=== PATIENT | female | born 1965 | race Caucasian/White ===

== ENCOUNTER 2020-05-15 15:25 | Observation (INO) | payer MEDICAID, SELFPAY ==
[2020-05-15] VITALS (11 sets, daily range): BP systolic 130–159; BP diastolic 62–100; PULSE 62–85; RESP 16–29; TEMP 36.1–36.6; O2SAT 97–100; BMI 33.1
--- NOTE | ~2020-05-15 | CT_ITS ---
EXAMINATION: CTA brain carotid EXAM DATE: 05/15/2020 16:33 INDICATION: Headaches and dizziness. TECHNIQUE: Noncontrast head CT. Spiral CTA of the carotid arteries was performed with intravenous i njection 100 cc of Omnipaque 350. Axial, coronal, sagittal reformatted images reviewed. Additional r eformatted images created on dedicated 3-D workstation. NASCET comparable standard used to assess th e degree of arterial stenosis. Spiral CT angiogram cerebral arteries performed with the same intrave nous injection of contrast. Source images of the brain CTA transferred to dedicated workstation for 3 -D rotational image creation. Coronal, sagittal maximum intensity pixel images also reviewed. The d ose-length product (DLP) for this examination was 2036.69 mGy-cm. The exposure was tailored accordi ng to patient size, and iterative reconstruction (ASIR) was used as additional dose reduction techniq ue. There is no prior study for comparison. FINDINGS: There is mild bilateral carotid bulb arterial sclerosis without stenosis. The right vertebr al artery is dominant. There is severe narrowing of the distal aspect of the left vertebral artery ju st before it enters the basilar artery. There is mild to moderate left carotid siphon and mild right carotid siphon arterial sclerosis with no more than mild stenosis. There is no carotid or vertebral basilar arterial dissection or fibromuscular dysplasia. There are no cerebral artery aneurysms. There is symmetric cerebral artery arborization. The sagittal, transverse and sigmoid sinuses enhance norm ally, no venous sinus thrombosis. Internal cerebral veins also enhance normally. There is no acute intraparenchymal hemorrhage. No evidence of intraparenchymal brain mass lesion. N o evidence of acute infarction. Please note that initial head CT has limited sensitivity for small or acute infarctions. There is mild to moderate periventricular and subcortical hypodensity, nonspecifi c but probably related to small vessel ischemic disease. There is mild prominence of the sulci and ventricles related to cerebral atrophy. There is intracranial carotid arteriosclerosis. There is no mass effect or midline shift. There is no obstructive hydrocephalus suspected. There are no extra -axial collections. There are no calvarial acute fractures. There are no areas of abnormal enhancem ent on the postcontrast images. Lung apices are clear. There are there is left thyroid lobectomy. There are large cervical bridging e ndplate osteophytes and there is severe cervical facet arthropathy. IMPRESSION: 1. No acute intracranial findings. 2. 0% carotid bulb stenosis bilaterally. 3. Chronic, surgical changes. Reviewed, dictated and finalized at location [facility]. [facility]
--- NOTE | 2020-05-15 15:29 | ECG_ITS ---
Measurements Intervals [place] Rate: 69 P: 76 NC: 134 QRS: 74 QRSD: 75 T: 70 QT: 400 QTc: 429 Interpretive Statements SINUS RHYTHM NORMAL ECG Electronically Signed On 05-15-2020 17:12:41 STUDIO TECHNICIAN VIDEO OPERATOR by Tim Jackson D.O.
[2020-05-15 15:47] LABS: Basophils Percent Auto 0.4 % (0.2-1.2); Eosinophils Percent Auto 0.6 % (0-4.4); Hematocrit 43.7 % (37.0-47.0); Hemoglobin 15.1 g/dL (12.0-15.0); Immature Granulocyte Absolute 0.02 K/mm3 (0.00-0.031); Immature Granulocyte Percent A 0.3 % (0-0.5); Lymphocytes Absolute Auto 1.96 K/mm3 (0.9-3.2); Lymphocytes Percent Auto 28.5 % (18.3-44.2); Mean Corpuscular HGB Conc 34.6 g/dl (32-36); Mean Corpuscular Hemoglobin 37.3 pg (26-34); Mean Corpuscular Volume 107.9 fl (80-100); Mean Platelet Volume 9.7 fl (7.4-10.4); Monocytes Absolute Auto 0.5 K/mm3 (0.1-0.6); Monocytes Percent Auto 7.7 % (2.6-8.5); Neutrophils Absolute Auto 4.3 K/mm3 (1.3-6.7); Neutrophils Percent Auto 62.5 % (45.5-73.1); Platelet Count Result 228 k/mm3 (150-375); Red Blood Count 4.05 M/mm3 (4.2-5.4); Red Cell Distribution Width 12.9 % (11.5-14.5); White Blood Count 6.9 K/mm3 (4.5-10.0)
--- NOTE | 2020-05-15 15:50 | ED.DIZZY ---
HPI - Dizziness General Chief Complaint: Dizziness Stated Complaint: Dizziness,nausea,vargas Time Seen by Provider: 05/15/20 15:37 Source: patient Mode of arrival: ambulatory Limitations: no limitations History of Present Illness HPI Narrative: Patient is a 54 year old female with history of hypertension who presents for evaluation of dizziness. She reports a problem with dizziness intermittently for months. Since Saturday she has been having left frontal headache that is intermittent . She reports dizziness and it is worse with standing. She started taking metoprolol and lisinopril on saturday as well. She has been unable to take a shower because she feels dizziness with standing. She reports she leans to the right. SHe also reports she is having a hard time focusing her vision. She denies focal weakness, but she has numbness and tingling to both hand and feet. She denies chest pain, shortness of breath. She does reports nausea and vomiting. Related Data Home Medications Medication Instructions Recorded Confirmed lisinopril 10 mg PO DAILY 05/15/20 05/15/20 metoprolol tartrate 50 mg PO Q12H 05/15/20 05/15/20 Allergies Allergy/AdvReac Type Severity Reaction Status Date / Time No Known Allergies Allergy Verified 05/15/20 18:58 Review of Systems Review of Systems: All systems reviewed & are unremarkable except as noted in HPI and below ENT: Reports dizziness, Denies nasal congestion and Denies sore throat Comments: chronic tinnitis Cardiovascular: Cardiovascular: Denies chest pain Respiratory: Respiratory: Denies cough and Denies dyspnea Gastrointestinal: Gastrointestinal: Denies abdominal pain, Reports nausea and Reports vomiting Neurologic: Reports dizziness, Reports headache(s) and Denies focal weakness [facility] Past Medical History Medical History (Updated 05/15/20 @ 19:19 by Rosalinda Wang MD) Hypertension Social History Social History (Updated 05/03/20 @ 15:25 by Kassidy Pittman CMA) Smoking status: Current every day smoker Tobacco type: cigars Second hand tobacco smoke exposure: No Additional smoking assessment comments: 2 flavored cigars a day Alcohol intake: former Substance use: never Substance use type: does not use Other substance usage details: former drinker 5-6 per week Gender identity (if verbalized by the patient): Female Sexual Orientation (if Verbalized by the Patient): Straight or Heterosexual Spiritual care concerns: No Exam Const: General: no acute distress and alert Orientation/consciousness: patient oriented x3 HENMT: Head: normocephalic and atraumatic Face and sinus: face symmetric Eyes: Pupils: Equal, round and reactive pupils present EOM: EOMs intact bilaterally Other: no nystagmus Resp: Effort & Inspection: normal respiratory effort and no retractions Auscultation: clear to auscultation bilaterally Cardio: Rate: regular rate Rhythm: regular rhythm Heart sounds: no murmurs GI: GI Palp: Yes Soft to palpation, No Tenderness to palpation present (GI) and No Guarding due to palpation present (GI) Auscultation: normal bowel sounds Skin: General skin exam: normal color Rashes: no rashes Neuro: General: patient oriented x3, moves all extremities, no meningeal signs, no focal motor deficits and CN's II-XI intact bilaterally Cranial nerves: Yes CN's II-XII intact bilaterally and Yes Nystagmus not present Speech: normal speech Motor exam (neuro): 5/5 motor strength present throughout and Pronator motor function not present Sensory Exam: normal sensation Coordination: [id number]-[id number] test normal Other: unable to assess gait Psych: Mental Status: mental status grossly normal Affect: normal affect Course Reevaluation(s) Reevaluation #1: Patient reports she feels better. She still has dizziness but her headache has resolved. I have discussed CT report showing multifocal stenosis.. Nothing acute. She will be admitted for MRI. Date:
[2020-05-15] MEDS: METOCLOPRAMIDE HCL INJ 10 MG/2 ML VIAL IV PUSH (15:57)
[2020-05-15] MEDS: SODIUM CHLORIDE 0.9% IV 500 ML 999 ML IV CONT (15:57)
[2020-05-15] MEDS: diphenhydrAMINE HCl INJ 50 MG/ML VIAL 25 MG IV PUSH (15:57)
[2020-05-15 15:59] LABS: Anion Gap 1 mmol/L (8-16); Blood Urea Nitrogen 13 mg/dL (7-17); Carbon Dioxide 30 mmol/L (22-30); Chloride 99 mmol/L (98-107); Estimated CRCL calculation 86 ml/min; Estimated Glomerular Filt Rate > 60; Glucose 112 mg/dL (65-105); Potassium 3.5 mmol/L (3.4-5.0); Sodium 130 mmol/L (137-145)
[2020-05-15 17:15] LABS: Folic Acid 6.3 ng/mL (2.76->20)
[2020-05-15] MEDS: MECLIZINE HCL 25 MG TABLET PO (17:30)
[2020-05-15] MEDS: ASPIRIN 81 MG CHEWABLE TABLET 324 MG PO (17:30)
[2020-05-15] MEDS: CLOPIDOGREL BISULFATE 75 MG TABLET PO (17:30)
--- NOTE | 2020-05-15 18:45 | ADMGEN ---
This patient, Carmina Mcdonough, was admitted to Medical Room 252-01. Patient/family oriented to hospital policies and general routines including ID bracelet, bed and alarms, visiting hours, pain management, procedures, bathroom and other care routines, personal items, smoking policy, room service/diet, and visiting hours. Information on how to activate the Rapid Response Team has been discussed. Patient/Family are encouraged to report perceived risks to care and to ask questions if they do not understand what they are told or what they should do.
--- NOTE | 2020-05-15 19:49 | PM.IMHP ---
H&P: HPI History of Present Illness Date/Time: 05/15/20 19:49 Chief Complaint: dizziness Narrative: Carmina Mcdonough is a 54 year old female the patient stated that she has a history of hypertension however during COVID outbreak patient was not able to refill her metoprolol and lisinopril. The patient stated that she has felt dizzy before and it has been intermittently for months. The patient stated this past Saturday she was able to see a provider and started her blood pressure medication again. She has had no prior history of having any CVA or TIA. So she started taking her blood pressure medicine this past Saturday. The patient has been unable to stand up in the shower because she feels dizzy. The patient reports that when she walks she feels like she is leaning to the right. She also had some tunnel vision as well. No focal weakness. She is able to to follow command and hold a conversation. She has also had a hard time focusing Due to her tunnel vision. The patient had no fever chills no nausea vomiting or diarrhea. Patient stated that she has not been on any medication for the last couple months. CT of the brain was read as age-indeterminate occlusion of the M1 branch of the left MCA. There is collateral filling of the distal left MCV branches. Intracranial arthrosclerosis which multifocal stenosis. X patient was given IV Tylenol, Reglan, Benadryl IV fluids, Antivert, aspirin and Plavix. Neurology has been consulted. Patient is being admitted for observation on the date of service of 05/15/2020. Review of Systems Review of Systems: All systems reviewed & are unremarkable except as noted in HPI and below Constitutional: Constitutional: Reports as per HPI and Reports no additional constitutional complaints Eyes: Eyes: Reports as per HPI and Reports no additional eye complaints ENT: Reports system reviewed and no additional complaints, except as documented and Reports Normal hearing present Cardiovascular: Cardiovascular: Reports no additional cardiovascular complaints Respiratory: Respiratory: Reports no additional respiratory complaints and Reports no additional respiratory complaints Gastrointestinal: Gastrointestinal: Reports as per HPI and Reports no additional gastrointestinal complaints Musculoskeletal: Musculoskeletal: Reports no additional musculoskeletal complaints Integumentary/Breasts: Skin/Breast: Reports system reviewed and no additional complaints, except as docu and Reports as per HPI Neurologic: Reports system reviewed and no additional complaints, except as documented, Reports as per HPI and Reports Normal hearing present Psychiatric: Psychiatric: Reports no additional psychiatric complaints and Reports as per HPI Endocrine: Endocrine: Reports no additional endocrine complaints Hematologic/Lymphatic: Hematologic/Lymphatic: Reports no additional hematologic/lymphatic complaints Allergic/Immunologic: Allergic/Immunologic: Reports no additional allergic/immunologic complaints [facility] Past Medical History Medical History (Updated 05/15/20 @ 20:05 by Tammy Tracey NP) HTN (hypertension) with goal to be determined Hypertension Surgical History Surgical History (Updated 05/15/20 @ 20:05 by Tammy Tracey NP) H/O nasal polypectomy History of open reduction and internal fixation (ORIF) procedure right ankle History of removal of cyst on her chest History of vocal cord polypectomy Hx of nasal septoplasty Family History Family History (Updated 05/15/20 @ 20:24 by Tammy Tracey NP) Father Acute myocardial infarction Sibling Brain bleed Mother Breast cancer Social History Social History (Updated 05/15/20 @ 20:09 by Tammy Tracey NP) Social History: the patient has her mother that lives with her and she has no children. Her mother is her durable power claim attorney healthcare. The patient stated that she will be a full code Because that is what her mother would want her to be.
[2020-05-15] MEDS: METOPROLOL TARTRATE 50 MG TAB PO (22:18)
[2020-05-16] VITALS (7 sets, daily range): BP systolic 105–127; BP diastolic 57–83; PULSE 70–82; RESP 16–20; TEMP 36.4–36.7; O2SAT 97
[2020-05-16 05:38] LABS: Basophils Percent Auto 0.5 % (0.2-1.2); Eosinophils Absolute Auto 0.1 K/mm3 (0-0.3); Eosinophils Percent Auto 0.9 % (0-4.4); Hematocrit 42.5 % (37.0-47.0); Hemoglobin 14.6 g/dL (12.0-15.0); Immature Granulocyte Absolute 0.02 K/mm3 (0.00-0.031); Immature Granulocyte Percent A 0.3 % (0-0.5); Lymphocytes Absolute Auto 2.48 K/mm3 (0.9-3.2); Mean Corpuscular HGB Conc 34.4 g/dl (32-36); Mean Corpuscular Hemoglobin 37.3 pg (26-34); Mean Corpuscular Volume 108.7 fl (80-100); Mean Platelet Volume 10.1 fl (7.4-10.4); Monocytes Absolute Auto 0.5 K/mm3 (0.1-0.6); Monocytes Percent Auto 7.5 % (2.6-8.5); Neutrophils Absolute Auto 3.4 K/mm3 (1.3-6.7); Neutrophils Percent Auto 52.8 % (45.5-73.1); Platelet Count Result 230 k/mm3 (150-375); Red Blood Count 3.91 M/mm3 (4.2-5.4); Red Cell Distribution Width 12.9 % (11.5-14.5); White Blood Count 6.5 K/mm3 (4.5-10.0)
[2020-05-16 05:52] LABS: Alanine Aminotransferase 21 U/L (4-35); Albumin Level 3.6 g/dL (3.5-5.1); Alkaline Phosphatase 64 U/L (38-126); Anion Gap 6 mmol/L (8-16); Aspartate Amino Transferase 35 U/L (14-36); Bilirubin,Total 0.7 mg/dL (0.2-1.3); Blood Urea Nitrogen 12 mg/dL (7-17); CRP < 0.5 mg/dL (<1.0); Calcium 8.8 mg/dL (8.4-10.2); Carbon Dioxide 27 mmol/L (22-30); Chloride 104 mmol/L (98-107); Cholesterol 246 mg/dL (0-200); Estimated CRCL calculation 99 ml/min; Estimated Glomerular Filt Rate > 60; Glucose 91 mg/dL (65-105); HDL Direct 37 mg/dL; Lactate Dehydrogenase 598 U/L (313-618); Magnesium 1.9 mg/dL (1.6-2.3); Potassium 3.6 mmol/L (3.4-5.0); Sodium 137 mmol/L (137-145); Triglycerides 267 mg/dL (<150)
[2020-05-16 05:59] LABS: LDL Cholesterol Direct 181 mg/dL
--- NOTE | 2020-05-16 06:00 | ECHO_ITS ---
Patient Info Name: Carmina Mcdonough Age: 54 years : 1965 Gender: Female Ht: 65 in Wt: 200 lbs BSA: 2.07 m2 HR: 72 bpm BP: 130 / 75 mmHg Heart Rhythm: Sinus Rhythm Technical Quality: Good Exam Date: 05/16/2020 10:12 AM Exam Location: [facility] Patient Status: Inpatient Admit Date: 05/15/2020 Staff Ordering Physician: Rosalinda Wang MD Prison Classification Counselor: Félix Ventura RDCS Attending Provider: Merle Demarco PA-C Referring Physician: Felipe REZA; Exam Type: CA echo doppler color flow Study Info Indications 436.0 - CVA Complete two-dimensional, color flow and Doppler transthoracic echocardiogram is performed. Strain analysis performed. History/Risk Factors Dizziness w/ concern for CVA; Hypertension. Summary 1. Complete two-dimensional, color flow and Doppler transthoracic echocardiogram is performed. 2. Left ventricular systolic function is normal, estimated at 65-70%. 3. There is moderately increased left ventricular wall thickness. 4. The left ventricular diastolic function is grade I diastolic dysfunction. 5. Global longitudinal strain is mildly elevated at -17 %. 6. There is mild to moderate aortic valve regurgitation. 7. There is trace tricuspid valve regurgitation. 8. No pulmonary hypertension, estimated pulmonary arterial systolic pressure is 31 mmHg. Recommendations * Consider bubble study and/or transesophageal echocardiogram if clinically indicated. Left Ventricle Left ventricular chamber dimension is normal. Left ventricular systolic function is normal, estimated at 65-70%. There is moderately increased left ventricular wall thickness. The left ventricular diastolic function is grade I diastolic dysfunction. Global longitudinal strain is mildly elevated at -17 %. Right Ventricle Right ventricular chamber dimension is normal. Right ventricular systolic function is normal. Left Atria Left atrial chamber dimension is normal. Right Atria Right atrial chamber dimension is normal. Aortic Valve The aortic valve is not well visualized. There is no aortic valve stenosis. There is mild to moderate aortic valve regurgitation. Pulmonic Valve The pulmonic valve is not well visualized. Mitral Valve The mitral valve has normal leaflets. There is mild mitral valve regurgitation. Tricuspid Valve The tricuspid valve leaflets are not well visualized. There is trace tricuspid valve regurgitation. No pulmonary hypertension, estimated pulmonary arterial systolic pressure is 31 mmHg. Pericardium/Pleural The pericardium appears epicardial fat pad. There is no pericardial effusion. Inferior Vena Cava Normal inferior vena cava with >50% collapse upon inspiration consistent with normal right atrial pressure, 5 mmHg. Aorta The aortic root size at the sinus of Valsalva is normal. Left Ventricular Outflow Tract Name Value Normal LVOT 2D LVOT Diameter 2.2 cm LVOT Doppler LVOT Peak Gradient 7 mmHg LVOT Mean Gradient 3 mmHg LVOT VTI 24 cm LVOT VTI/
[2020-05-16 07:39] LABS: Glucose Point of Care 96 (65-105)
[2020-05-16] MEDS: METOPROLOL TARTRATE 50 MG TAB PO (09:20)
[2020-05-16] MEDS: FLUTICASONE PROPIONATE 0.05% NA SPR 16 GM BTL (*BKC) 1 SPRAY NASAL (09:20)
[2020-05-16] MEDS: lisinopriL 10 MG TABLET PO (09:20)
[2020-05-16] MEDS: CLOPIDOGREL BISULFATE 75 MG TABLET PO (09:21)
[2020-05-16] MEDS: ATORVASTATIN 20 MG TABLET PO (09:21)
[2020-05-16] MEDS: ASPIRIN 81 MG CHEWABLE TABLET PO (09:21)
[2020-05-16 09:44] LABS: Free T4 Free Thyroxine Reflex 0.83 ng/dL (0.78-2.19)
[2020-05-16 11:07] LABS: Total Triiodothyronine (T3) 1.46 NG/ML (0.97-1.69)
--- NOTE | 2020-05-16 12:11 | WPDNEURCNPN ---
Assessment and Plan Assessment and plan (1) HTN (hypertension) with goal to be determined: Code(s): I10 - Essential (primary) hypertension Status: Chronic (2) Dizziness: Code(s): R42 - Dizziness and giddiness Status: Acute Additional Plan underlying significant intracranial arterial disease as per the CT scan further workup is being carried out Consult date: 05/16/20 Time Seen: 11:30 HPI: Carmina Mcdonough is a 54 year old female admitted to the hospital for the complaints of dizziness of intermittent in nature but on Saturday she started taking her blood pressure medication and was unable to stand up in the shower because of the dizziness along with that she has some tunnel vision but no focal weakness and also no history of associated generalized symptomatology initial CT scan of the head in the Emergency Room documented the MC 1 branch of the left MCA occlusion with collateral filling of distal MCA and multifocal stenosis patient received the fluids aspirin and Plavix and was admitted to the hospital for further evaluation. she does have ongoing history of hypertension and vocal cord polypectomy in the past, she is a former drinker never substance abuser and smokes to flavor cigarettes a day. Patient will undergo MRI and echo because of the abnormal CT scan of the head in the meantime she is receiving aspirin 81 mg daily with Plavix 75 mg daily atorvastatin 20 mg daily and lisinopril 10 mg daily PMFSH Past Medical History Medical History HTN (hypertension) with goal to be determined Hypertension Surgical History Surgical History H/O nasal polypectomy History of open reduction and internal fixation (ORIF) procedure right ankle History of removal of cyst on her chest History of vocal cord polypectomy Hx of nasal septoplasty Family History Family History Father Acute myocardial infarction Sibling Brain bleed Mother Breast cancer Social History Social History Social History: the patient has her mother that lives with her and she has no children. Her mother is her durable power managing attorney healthcare. The patient stated that she will be a full code Because that is what her mother would want her to be. 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 She has no children and has never been . She smokes 2 cigars a day. Occasionally uses alcohol no marijuana or illicit drugs. Smoking status: Current every day smoker Tobacco type: cigars Second hand tobacco smoke exposure: No Additional smoking assessment comments: 2 flavored cigars a day Alcohol intake: former Substance use: never Substance use type: does not use Other substance usage details: former drinker 5-6 per week Gender identity (if verbalized by the patient): Female Sexual Orientation (if Verbalized by the Patient): Straight or Heterosexual Spiritual care concerns: No Meds Home Medications and Allergies Home Medications Medication Instructions Recorded Confirmed Type fluticasone propionate 50 1 spray INTRANASAL BID #15.8 ml 05/03/20 05/15/20 Rx mcg/actuation nasal spray,suspension lisinopril 10 mg PO DAILY 05/15/20 05/15/20 History metoprolol tartrate 50 mg PO Q12H 05/15/20 05/15/20 History Allergies Allergy/AdvReac Type Severity Reaction Status Date / Time No Known Allergies Allergy Verified 05/15/20 18:58 Vital Signs Vital Signs - 24 hr 05/15/20 15:29 05/15/20 16:49 05/15/20 17:05 Temperature 36.6 C Pulse Rate 69 85 76 Respiratory Rate 24 H 22 H Blood Pressure 152/100 H 159/78 H 145/64 H Pulse Oximetry 97 100 05/15/20 17:06 05/15/20 17:30 05/15/20 18:38 Temperature Pulse Rate 84 74 78 Respiratory Ra
[2020-05-16 13:15] LABS: Glucose Point of Care 111 (65-105)
--- NOTE | 2020-05-16 17:29 | PM.DS ---
DS: Admitting Diagnosis Admitting Diagnosis Admitting Diagnosis: Dizziness DS: Discharge Diagnosis Discharge Diagnosis (1) Cerebral vascular disease: Code(s): I67.9 - Cerebrovascular disease, unspecified Status: Acute Assessment and Plan: Date of Admission 05/15/20 Date of Discharge/DOS 05/16/20 Ms. Mcdonough is a pleasant 54yo F with history of hypertension who presented to the ED for evaluation of dizziness. She described intermittent dizziness that had been ongoing several weeks however over the last 3 days her dizziness was persistent and she was also having headaches. A head/neck CTA demonstrated no evidence of acute intracranial findings however does note severe narrowing of the distal aspect of the left vertebral artery just before it enters the basilar artery. Patient's symptoms were resolved at time of my encounter and she feels well enough to go home. She is educated regarding her cerebral vascular disease, started on aspirin and statin therapy and encouraged to establish care with neurosurgery as outpatient. MRI unable to be obtained due to the machine being down day of discharge. She is agreeable to discharging with an order for outpatient MRI since her symptoms are resolved. She was educated on stroke risk reduction. She is hemodynamically stable for discharge with instructions to follow up with PCP, obtain MRI brain. She had also been out of her antihypertensives for months and had not been taking them. BPs elevated on arrival but are improved after resuming her previous regimen. BP stable at discharge and she is encouraged to continue taking these medications as prescribed. (2) Chronic hyponatremia: Code(s): E87.1 - Hypo-osmolality and hyponatremia Status: Acute Assessment and Plan: Chronic, stable. (3) Dizziness: Code(s): R42 - Dizziness and giddiness Status: Acute Assessment and Plan: Improved. May be related to TIA, uncontrolled hypertension. See above. (4) HTN (hypertension) with goal to be determined: Code(s): I10 - Essential (primary) hypertension Status: Chronic Assessment and Plan: Resume lisinopril and metoprolol. DS: Summary Hospital Course Hospital Course: See above. Time Spent with Patient Time attestation: Total time spent providing and/or coordinating discharge services: 40 minutes Exam Narrative: Exam Narrative: General: Female resting supine in bed in no acute distress. HEENT: Normocephalic, EOMI, oral mucosa moist. Cardiovascular: Rate and rhythm are regular. No arrhythmia noted on cardiac telemetry monitoring. Respiratory: Lungs clear to auscultation bilaterally. Respirations even and non-labored. Abdomen: Soft, non-tender, non-distended, bowel sounds present. Extremities: Peripheral pulses intact. No edema. Neuro: Alert and oriented x 3. Cranial nerves II-XII intact as tested. PERRY upper and lower extremity strength equal and appropriate. No focal neurological deficits. Speech is clear. DS: Data Data Completed and Pending Labs on day of discharge: Last Vital Signs Temp 98.0 F 05/16/20 14:00 Pulse 78 05/16/20 14:00 Resp 20 05/16/20 14:00 BP 105/76 05/16/20 14:00 Pulse Ox 97 05/16/20 14:00 ITS Impressions Head/Neck CTA 05/16/20 08:07 IMPRESSION: 1. No acute intracranial findings. 2. 0% carotid bulb stenosis bilaterally. 3. Chronic, surgical changes (left thyroid lobectomy). Laboratory Tests 05/16/20 05:01 05/16/20 05:01 Discharge Plan Discharge Attending physician on discharge: Beatrice Arroyo Consulting providers: Juan Herrera ; Merle Demarco ; Tim Jackson ; Huber Lang ; Conrado Ludwig ; Tammy Tracey Discharging Clinician: Merle Demarco Anticipated Discharge Date/Time: 05/16/20 13:54 Patient Disposition: Home, Self-Care Activity: as tolerated Diet: as tolerated Discharge
== END 2020-05-16 14:30 | disposition home or self-care (01) ==
LOC: ANHED 17:38 → ANH2MED 18:30
PROVIDERS: Emergency Medicine; Nurse Practitioner; Physician Assistant; Admitting Provider Family Medicine; Emergency Provider General Practice; PCP Nurse Practitioner; Visit Provider Family Medicine
DX: I67.9 Cerebrovascular disease, unspecified (principal); R42 Dizziness and giddiness; I10 Essential (primary) hypertension; F17.290 Nicotine dependence, other tobacco product, uncomplicated; E87.1 Hypo-osmolality and hyponatremia
CPT/HCPCS: 36415; 70496; 70498; 80048; 80053; 80061; 82607; 82746; 82948; 83615; 83735; 84439; 84443; 84480; 85025; 86140; 93005; 93306; 96361; 96374; 96375; 99285; A9270; G0378; G0379; J0131; J1200; J2765; J7040; Q9967

== ENCOUNTER 2021-03-24 10:23 | Outpatient (CLI) | payer OTHER, SELFPAY ==
--- NOTE | ~2021-03-24 | CT_ITS ---
EXAMINATION: CT sinus wo con DATE: 03/24/2021 10:45 INDICATION: Headache, unspecified TECHNIQUE: Computed tomography (CT) of the paranasal sinuses was performed without intravenous contra st. The dose-length product (DLP) was 296.82 mGy-cm. Iterative reconstruction was used. COMPARISON: 07/14/2009 FINDINGS: There is normal development and pneumatization of the paranasal sinuses. There is mild muco tamara thickening of the ethmoidal air cells and right maxillary sinus. The frontal, sphenoid, and left maxillary sinuses are clear. The right ostiomeatal unit is obstructed. The left is clear. Visualized soft tissues are unremarkable. IMPRESSION: 1. Mild sinus disease as detailed above. Reviewed, dictated and finalized at location [facility]
== END 2021-03-24 10:24 | disposition home or self-care (01) ==
LOC: ANHIMG 10:24
PROVIDERS: PCP Nurse Practitioner; Visit Provider Otolaryngology
DX: R51.9 Headache, unspecified (principal); J32.9 Chronic sinusitis, unspecified; J34.2 Deviated nasal septum; J34.3 Hypertrophy of nasal turbinates; J34.89 Other specified disorders of nose and nasal sinuses; R09.81 Nasal congestion; R09.82 Postnasal drip; R44.8 Other symptoms and signs involving general sensations and perceptions
CPT/HCPCS: 70486

== ENCOUNTER → 2021-04-29 01:49 | Outpatient (CLI) | payer OTHER, SELFPAY ==
[2021-04-29 14:38] LABS: SARS-CoV-2 RNA PCR Negative
== END ==
PROVIDERS: PCP Nurse Practitioner; Visit Provider Otolaryngology
DX: Z01.812 Encounter for preprocedural laboratory examination (principal); Z20.822 Contact with and (suspected) exposure to COVID-19
CPT/HCPCS: C9803; U0003; U0005

== ENCOUNTER 2021-05-02 01:16 | Day surgery (SDC) | payer OTHER, SELFPAY ==
[2021-04-26 14:24] VITALS: BMI 32.4
--- NOTE | 2021-04-26 14:33 | PC.NURSE ---
Report to the Outpatient Waiting Room, entrance under the green pavilion located off [facility], at time 0730 on date 05/02/21. OR Time: 0930. - You will be asked a series of questions to screen for COVID 19 for your protection. - A mask is required within the hospital. - No visitors are allowed at this time. Preoperative COVID Testing Requirements: COVID TEST 04/29 AT 0850 No COVID Test needed if: (proof is required; if not received patient will have Rapid Test prior to entry) - Patient has received COVID Vaccine at least 14 days prior to procedure date or - Patient has positive COVID test result within last 90 days of surgery date. COVID Test needed if above criteria is not met If not COVID vaccinated a COVID test must be conducted within 72 hours of surgery and patient is asked to isolate self from time of testing until procedure. You will go to the [facility] for your COVID testing. The [facility] site is located at the corner of [address] [facility]. You will only be called if COVID results are positive and your surgeon may reschedule your elective surgery date. Patients may have clear liquids (water, carbonated beverages, clear teas, apple juice) until 3 hours prior to surgery with a maximum of 20 ounces. - No food from midnight until time of surgery Take the following medications with a SIP of water the morning of surgery: DOXYCYCLINE, INHALER, NOSE SPRAYS (IF NEEDED) Medications to discontinue per physician: ASPIRIN Date to take last dose: PER DR. KERR Please no make-up, nail [facility] [place], hairspray, perfume, deodorant, or body powder the day of surgery. No jewelry (including any body piercings) or valuables the day of surgery, leave them at home. Please take a shower or bath the night before, or the morning of, surgery with an antibacterial soap. Wear comfortable, loose fitting clothing. - Jewelry must be removed prior to entering the operating room. Rings and piercings that are not removed may be cut off. - The hospital will not accept responsibility for valuables. - Please leave all valuables, including medications, at home the day of surgery. If you are going home after surgery, a licensed truck driver supervisor must drive you home. - NO public transportation without another adult. - We recommend that an adult stay with you for 24 hours following discharge. - We also recommend that you do not drive, make important decision, drink alcoholic beverages, or take any drugs that were not prescribed by your health care provider for at least 24 hours after your discharge time. Follow any additional instructions given to you from your surgeon. Telephone instructions given to MARIA INES LERMA and asked if any additional questions and then verbalized understanding. Patient advised to call surgeon office or pre surgery nurse liaison [phone] if any additional questions.
--- NOTE | 2021-05-01 10:37 | PM.IMHP ---
H&P: HPI History of Present Illness Date/Time: 05/01/21 10:37 Chief Complaint: Chronic sinusitis recurrent sinusitis septal deviation inferior turbinate hypertrophy nasal obstruction nasal congestion Narrative: patient presents for planned surgical procedures. No change in symptoms no change in history Review of Systems Constitutional: Constitutional: Denies fatigue, Denies fever(s) and Denies lethargy Eyes: Eyes: Denies blurry vision and Denies change in vision ENT: Reports as per HPI Cardiovascular: Cardiovascular: Denies chest pain Respiratory: Respiratory: Denies cough Endocrine: Endocrine: Denies fatigue Hematologic/Lymphatic: Hematologic/Lymphatic: Denies easy bleeding, Denies easy bruising and Denies lymphadenopathy Allergic/Immunologic: Allergic/Immunologic: Denies seasonal rhinorrhea [facility] Past Medical History Medical History HTN (hypertension) with goal to be determined Hypertension Surgical History Surgical History H/O nasal polypectomy History of open reduction and internal fixation (ORIF) procedure right ankle History of removal of cyst on her chest History of vocal cord polypectomy Hx of nasal septoplasty Family History Family History Father Acute myocardial infarction Sibling Brain bleed Mother Breast cancer Social History Social History Social History: the patient has her mother that lives with her and she has no children. Her mother is her durable power wellness program administrator healthcare. The patient stated that she will be a full code Because that is what her mother would want her to be. 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 She has no children and has never been . She smokes 2 cigars a day. Occasionally uses alcohol no marijuana or illicit drugs. Smoking status: Former smoker Tobacco type: cigars Second hand tobacco smoke exposure: No Smoking end date: 04/15/21 Additional smoking assessment comments: PREVIOUSLY SMOKED 2 CIGARS A DAY X OVER 30 YEARS Alcohol intake: current Drinks per week: 5 Substance use: never Substance use type: does not use Other substance usage details: former drinker 5-6 per week Gender identity (if verbalized by the patient): Female Sexual Orientation (if Verbalized by the Patient): Straight or Heterosexual Spiritual care concerns: No Meds Home Medications and Allergies Home Medications Medication Instructions Recorded Confirmed Type lisinopril 10 mg PO DAILY 05/15/20 04/26/21 History aspirin [Children's Aspirin] 81 mg PO DAILY@0800 30 Days #30 05/16/20 04/26/21 Rx tablet atorvastatin 20 mg PO DAILY 30 Days #30 tablet 05/16/20 04/26/21 Rx albuterol sulfate 90 mcg/actuation 1 inh INHALATION Q4H 02/02/21 04/26/21 History aerosol inhaler azelastine 137 mcg (0.1 %) nasal 1 spray INTRANASAL Q12H #30 ml 02/13/21 04/26/21 Rx spray aerosol fluticasone propionate 50 2 spray INTRANASAL BID #15.8 ml 02/13/21 04/26/21 Rx mcg/actuation nasal spray,suspension doxycycline hyclate 100 mg capsule 100 mg PO DAILY #10 cap 04/11/21 04/26/21 Rx Allergies Allergy/AdvReac Type Severity Reaction Status Date / Time No Known Allergies Allergy Verified 04/26/21 14:22 Exam Const: General: cooperative, healthy appearing, comfortable, well developed and alert HENMT: Head: normal to inspection, normocephalic and atraumatic Ears: hearing grossly normal bilaterally, external ears normal, TM's normal bilaterally and EAC's normal General nose exam: Normal external nose present, Normal nares present and Other nasal findings present ( septal deviation turbinate hypertrophy) Face and sinus: normal facial exam Mouth: Ye
[2021-05-02] VITALS (9 sets, daily range): BP systolic 141–173; BP diastolic 56–85; PULSE 86–106; RESP 15–26; TEMP 36.2–36.8; O2SAT 89–98
--- NOTE | 2021-05-02 07:14 | WPDHPUPDATE1 ---
History and Physical Update Update Date/Time: 05/02/21 07:14 History and Physical has been reviewed, including an updated exam of the patient. There are NO changes in the patient's condition. Risks, benefits, and alternatives have been discussed and questions answered. Patient agrees to proceed with procedure.
--- NOTE | 2021-05-02 08:42 | WPDANESEPPF ---
Anes - Initial Pre Proc Eval Procedure: Operation Date: 05/02/21 10:00 Proposed Procedures p Image Guided Bilateral Maxillary Antrostomy, Left Anterior Ethmoidectomy, Right Total Ethmoidectomy, Bilateral Inferior Turbinectomy with Outfracture - Christian Gonzalez MD s Septoplasty - Christian Gonzalez MD Date/Time: 05/02/21 08:42 Surgeon: Christian Gonzalez MD Pre Op Diagnosis: Chronic Sinusitis Patient Data Age: 55 Gender: F Height: 1.65 m Weight: 87.4 kg Allergies Allergy/AdvReac Type Severity Reaction Status Date / Time No Known Allergies Allergy Verified 05/02/21 07:58 Home Medications Medication Instructions Recorded Confirmed Type lisinopril 10 mg PO DAILY 05/15/20 05/02/21 History aspirin [Children's Aspirin] 81 mg PO DAILY@0800 30 Days #30 05/16/20 05/02/21 Rx tablet atorvastatin 20 mg PO DAILY 30 Days #30 tablet 05/16/20 05/02/21 Rx albuterol sulfate 90 mcg/actuation 1 inh INHALATION Q4H 02/02/21 05/02/21 History aerosol inhaler azelastine 137 mcg (0.1 %) nasal 1 spray INTRANASAL Q12H #30 ml 02/13/21 05/02/21 Rx spray aerosol fluticasone propionate 50 2 spray INTRANASAL BID #15.8 ml 02/13/21 05/02/21 Rx mcg/actuation nasal spray,suspension doxycycline hyclate 100 mg capsule 100 mg PO DAILY #10 cap 04/11/21 05/02/21 Rx Other studies: Exam Date: 05/16/2020 10:12 AM Exam Location: [facility] Patient Status: Inpatient Admit Date: 05/15/2020 Staff Ordering Physician: Rosalinda Wang MD Sugar Trucker: Félix Ventura RDCS Attending Provider: Merle Demarco PA-C Referring Physician: Felipe REZA; Exam Type: CA echo doppler color flow Study Info Indications 436.0 - CVA Complete two-dimensional, color flow and Doppler transthoracic echocardiogram is performed. Strain analysis performed. History/Risk Factors Dizziness w/ concern for CVA; Hypertension. Summary 1. Complete two-dimensional, color flow and Doppler transthoracic echocardiogram is performed. 2. Left ventricular systolic function is normal, estimated at 65-70%. 3. There is moderately increased left ventricular wall thickness. 4. The left ventricular diastolic function is grade I diastolic dysfunction. 5. Global longitudinal strain is mildly elevated at -17 %. 6. There is mild to moderate aortic valve regurgitation. 7. There is trace tricuspid valve regurgitation. 8. No pulmonary hypertension, estimated pulmonary arterial systolic pressure is 31 mmHg. Patient hx anesthesia problems: none Family hx anesthesia problems: none Results Review: All pre-operative results and documents have been reviewed as part of the pre-operative evaluation. [facility] Past Medical History Medical History (Updated 05/02/21 @ 08:43 by Timbo Key MD) Anxiety Arthritis Cerebral vascular disease Chronic GERD CVA (cerebral vascular accident) Depression HTN (hypertension) with goal to be determined Hypercholesterolemia Hypertension Obesity Surgical History Surgical History H/O nasal polypectomy History of open reduction and internal fixation (ORIF) procedure right ankle History of removal of cyst on her chest History of vocal cord polypectomy Hx of nasal septoplasty Family History Family History Father Acute myocardial infarction Sibling Brain bleed Mother Breast cancer Social History Social History Social History: the patient has her mother that lives with her and she has no children. Her mother is her durable power commonwealth attorney healthcare. The patient stated that she will be a full code Because that is what her mother would want her to be. 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
[2021-05-02] MEDS: LACTATED RINGERS 1,000 ML 30 ML IV CONT ×2 (08:51→11:55)
[2021-05-02] MEDS: ACETAMINOPHEN 500 MG TABLET 1000 MG PO (08:51)
[2021-05-02] MEDS: ceFAZolin 2 GM/D5W 50 ML 2 GM/50 ML BAG IVPB (10:30)
[2021-05-02] MEDS: OXYMETAZOLINE HCL 0.05% NAS 15 ML BTL (*BKC) 1 SPRAY NASAL (10:50)
[2021-05-02] MEDS: LIDO 1%/EPINEPHRINE 1:100,000 50 ML VIAL 10 ML INFILTRATE (11:34)
[2021-05-02] MEDS: MUPIROCIN 2% OINT 22 GM TUBE 1 APPLIC EACH NARE (11:35)
[2021-05-02] MEDS: fentaNYL CITRATE INJ (*CRX) 100 MCG/2 ML VIAL 25 MCG IV PUSH ×4 (12:18→12:29)
--- NOTE | 2021-05-02 12:48 | W.PM.PROC2 ---
Procedure Note - Detailed Date of Procedure 05/02/21 Pre-op Diagnosis Chronic Sinusitis, septal deviation, inferior turbinate hypertrophy, nasal obstruction, nasal congestion Post-op Diagnosis same Procedure Performed Endoscopic assisted septoplasty, inferior turbinate submucosal resection with outfracture, bilateral image guided endoscopic maxillary antrostomies, right-sided endoscopic image guided total ethmoidectomy, left-sided image guided endoscopic anterior ethmoidectomy Surgeon Christian Gonzalez MD Anesthesia general Indications See above Findings Left septal deviation straight and to allow access to the middle meatus purulence scant mucus in the operated sinuses turbinate hypertrophy well reduced. No complications Description of Procedure Patient correctly identified consent verified. Patient brought operating room. Time-out performed. General anesthesia induced endotracheal tube secured. Afrin-soaked pledgets placed low to sit for 5 minutes. Patient prepped and draped for the aforementioned procedure image guidance initiated. Second time-out performed. Afrin-soaked pledgets removed. 0 degree endoscope utilized aforementioned findings noted. 1% lidocaine with 1 100,000 parts epinephrine injected in the bilateral nasal septum and the inferior turbinates total of 8 cc. The [place] incision made posterior to a normal incision given that it appeared previous cartilage had been removed. Left-sided mucoperichondrial flap elevated septum crust over the osteotome small perforation on right tear on left also not concomitant. Deviated septum removed with Dylon Antoine as well as Claudy forceps. [place] incision closed with 1 interrupted 5 0 fast gut suture given its posterior location. Bilateral maxillary antrostomies performed with backbiter double ball tip probe and straight through cut as well as microdebrider significant Brody cells noted largely obstructing the outflow tract of the maxillary sinuses mucoid purulence noted in both opened well connected to the natural os no complications. Right-sided total ethmoidectomy performed with combination of Kerr[place] and microdebrider. Mucoid purulence noted in 1 cell. Left-sided anterior ethmoidectomy performed with a microdebrider and [place] scant mucoid purulence noted as well. Turbinates reduced in the submucoperichondrial plane bilaterally with microdebrider with 2 mm blade and then outfractured. Crisostomo splints trimmed placed bilaterally and sutured anteriorly in the nasal septum with a 3-0 mattress nylon suture. Hemostasis was excellent. The bilateral nasal passages were suctioned the choana. This marked end the procedure. Care the patient turned Anesthesiology. I performed all dictated portions. Estimated Blood Loss 50 Drains No Packing No Pathology none sent Complications No immediate complications Condition stable Disposition PACU
[2021-05-02] MEDS: oxyCODONE HCL (*CRX) 5 MG TAB IR PO (13:26)
== END 2021-05-02 14:43 | disposition home or self-care (01) ==
PROVIDERS: PCP Nurse Practitioner; Visit Provider Otolaryngology
PROC: (CPT 31256; principal; 2021-05-02 10:00)
PROC: (CPT 30520; 2021-05-02 10:00)
DX: J32.9 Chronic sinusitis, unspecified (principal); J34.3 Hypertrophy of nasal turbinates; J34.2 Deviated nasal septum; J34.89 Other specified disorders of nose and nasal sinuses; R09.81 Nasal congestion; I10 Essential (primary) hypertension; I67.9 Cerebrovascular disease, unspecified; E78.00 Pure hypercholesterolemia, unspecified; F41.9 Anxiety disorder, unspecified; K21.9 Gastro-esophageal reflux disease without esophagitis; Z86.73 Personal history of transient ischemic attack (TIA), and cerebral infarction without residual deficits; E66.9 Obesity, unspecified; Z68.32 Body mass index [BMI] 32.0-32.9, adult; Z87.891 Personal history of nicotine dependence; Z79.51 Long term (current) use of inhaled steroids; Z79.82 Long term (current) use of aspirin
CPT/HCPCS: 31256; 31255; 31254; 30140; 30520; A9270; J0330; J0690; J1100; J2250; J2405; J2704; J3010; J7120